=== PATIENT | male | born 1985 | race Caucasian/White ===

== ENCOUNTER 2019-04-02 15:18 | Emergency (ER) | payer MEDICAID ==
[~2019-04-02] VITALS: Ht 185.4 cm; Wt 104.3 kg
[2019-04-02 15:20] VITALS: BP 122/86
--- NOTE | 2019-04-02 15:45 | NUR ---
PT REPORTS FALLING ASLEEP IN A CHAIR AT WORK TODAY, AND FALLING BACKWARDS ON ACCIDENT. PT STATES HE HIT HIS HEAD VERY HARD ON SOMETHING BUT IS NOT SURE WHAT IT WAS - STATES MAY HAVE BEEN A METAL RAIL OR THE WALL. MILD SWELLING NOTED TO THE BACK OF HIS HEAD, PT DENIES LOC. PT STATES HIS NOSE STARTED BLEEDING RIGHT AWAY, BUT STOPPED SOON AFTER WITH PRESSURE APPLIED. NEURO CHECK INTACT, PT SPEAKING CLEAR SENTENCES AND ANSWERING QUESTIONS APPROPRIATELY. PT AMBULATING WITH EVEN & STEADY DONALD. PERRLA. BED IN LOW POSITION, SIDE RAIL UP X1
--- NOTE | 2019-04-02 16:05 | NUR ---
DR. COHEN EVALUATING PT AT BEDSIDE
[2019-04-02] MEDS ORDERED: KETOROLAC 60 MG/2 ML VIAL IM ONE ×2 (16:55→17:20)
[2019-04-02 17:28] VITALS: BP 127/84
--- NOTE | 2019-04-02 17:29 | NUR ---
Patient discharged with v/s stable. Written and verbal after care instructions given and explained. Patient verbalized understanding. Ambulatory with steady gait. All questions addressed prior to discharge. Advised to follow up with PMD. PRESCRIPTION FOR NAPROSYN 500MG GIVEN.
== END 2019-04-02 17:29 | disposition home or self-care (01) ==
LOC: MED 15:18
DX: S00.03XA Contusion of scalp, initial encounter (principal); R04.0 Epistaxis; W07.XXXA Fall from chair, initial encounter; Y93.89 Activity, other specified; Y92.89 Other specified places as the place of occurrence of the external cause; Y99.8 Other external cause status
CPT/HCPCS: 70450; 96372; 99284; J1885